=== PATIENT | female | born 1955 ===

== ENCOUNTER 2021-10-15 14:01 | Emergency (ER) | payer MEDICARE, OTHER ==
[~2021-10-15] VITALS: Ht 162.6 cm; Wt 76.2 kg
[2021-10-15 14:58] LABS: Basophils # (auto) 0.1 10 ^3/uL (0-0.2); Basophils % (auto) 0.9 % (0.0-2.0); Eosinophils # (auto) 0.1 10 ^3/uL (0-0.8); Eosinophils % (auto) 1.7 % (0.0-7.0); Hematocrit 38.8 % (36.0-46.0); Hemoglobin 13.4 g/dL (12.2-16.2); Lymphocytes # (auto) 1.9 10 ^3/uL (0.4-5.4); Lymphocytes % (auto) 23.2 % (10.0-50.0); Mean Corpuscular Hemoglobin 30.4 pg (28.0-32.0); Mean Corpuscular Hgb Conc. 34.5 g/dL (32.0-36.0); Mean Corpuscular Volume 88.2 fL (80.0-100.0); Monocytes # (auto) 0.7 10 ^3/uL (0-1.3); Monocytes % (auto) 8.1 % (0.0-12.0); Neutrophils # (auto) 5.5 10 ^3/uL (1.6-8.6); Neutrophils % (auto) 66.1 % (37.0-80.0); Nucleated Red Blood Cells % 0.1 %; White Blood Cell 8.3 10^3/uL (4.4-10.8)
[2021-10-15 15:11] LABS: INR 0.99 (0.9-1.15); Partial Thromboplastin Time 27.2 sec (23.6-33.0)
[2021-10-15 15:17] LABS: Albumin 4.2 g/dL (3.4-5.0); BUN/Creatinine Ratio 17.9; Calcium 9.1 mg/dL (8.5-10.1); Potassium 3.4 mmol/L (3.5-5.1)
[2021-10-15 15:21] LABS: Bilirubin, Total 0.2 mg/dL (0.2-1.0); Total Protein 7.7 g/dL (6.4-8.2)
[2021-10-15] MEDS ORDERED: POTASSIUM EFFERVESENT TAB 25 MEQ PO ONE (17:45)
[2021-10-15] MEDS ORDERED: KETOROLAC TROMETH 30 MG/ML 1ML VIAL IM ONE (18:00)
[2021-10-15 18:49] VITALS: BP 127/78
== END 2021-10-15 18:51 | disposition home or self-care (01) ==
LOC: ER 14:01
DX: M66.0 Rupture of popliteal cyst (principal); M79.89 Other specified soft tissue disorders
CPT/HCPCS: 36415; 80053; 85025; 85610; 85730; 93005; 93971; 96372; 99285; J1885